=== PATIENT | female | born 2000 | race Caucasian/White ===

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

== ENCOUNTER 2020-10-08 13:26 | Outpatient (NON) | payer OTHER, SELFPAY | END 2020-10-08 13:27 | disposition home or self-care (01) | LOC: CHSLAB 13:27 | PROVIDERS: Visit Provider Nurse Practitioner Family | DX: N39.0 Urinary tract infection, site not specified (principal) | CPT/HCPCS: 87077; 87086; 87088; 87186 ==

== ENCOUNTER 2023-05-22 11:58 | Outpatient (CLI) | payer OTHER, SELFPAY ==
--- NOTE | ~2023-05-22 | XR_ITS ---
XR abdomen/kub 1V 05/22/2023 12:47 INDICATION: Nausea, vomiting and diarrhea. Right lower abdomen pain. TECHNIQUE: KUB COMPARISON: None FINDINGS: Bowel gas pattern is normal. There is no evidence of free air, mass, organomegaly, ascites or obstruction. No abnormal calculi are seen. The bones appear intact. IMPRESSION: 1: No acute abdominal abnormality identified. Reviewed, dictated and finalized at location A. BENDER
--- NOTE | 2023-05-22 12:12 | ECG_ITS ---
Measurements Intervals [place] Rate: 82 P: -2 NH: 100 QRS: 69 QRSD: 92 T: 56 QT: 360 QTc: 423 Interpretive Statements SINUS RHYTHM WITH SHORT NH INTERVAL NO PREVIOUS ECG AVAILABLE FOR COMPARISON Electronically Signed On 05-22-2023 16:26:11 SALT MACHINE OPERATOR by Sara Yip M.D.
[2023-05-22 12:23] LABS: Basophils Absolute Auto 0.09 K/mm3 (0.00-0.10); Basophils Percent Auto 0.9 % (0.0-1.0); Eosinophils Absolute Auto 0.08 K/mm3 (0.02-0.50); Eosinophils Percent Auto 0.8 % (1.0-6.0); Hematocrit 49.1 % (35.0-49.0); Hemoglobin 16.4 g/dL (12.0-15.0); Immature Granulocyte Absolute 0.03 K/mm3 (0.00-0.00); Immature Granulocyte Percent A 0.3 % (0.0-0.0); Lymphocytes Absolute Auto 1.09 K/mm3 (1.10-4.50); Lymphocytes Percent Auto 11.1 % (18.0-42.0); Mean Corpuscular HGB Conc 33.4 g/dL (32.0-36.0); Mean Corpuscular Hemoglobin 30.5 pg (27.0-31.0); Mean Corpuscular Volume 91.4 fL (78.0-102.0); Mean Platelet Volume 11.2 fl (9.2-11.8); Monocytes Absolute Auto 0.22 K/mm3 (0.10-0.90); Monocytes Percent Auto 2.2 % (2.0-11.0); Neutrophils Absolute Auto 8.3 K/mm3 (1.7-7.2); Neutrophils Percent Auto 84.7 % (50.0-70.0); Platelet Count Result 301 K/mm3 (150-420); Red Blood Count 5.37 M/mm3 (4.20-5.40); Red Cell Distribution Width 12.1 % (11.6-14.4); White Blood Count 9.8 K/mm3 (4.8-10.8)
[2023-05-22 12:25] LABS: Pregnancy On Board Control Positive; Urine Pregnancy Test Negative
[2023-05-22 12:32] LABS: Amphetamine Screen Urine Negative (Negative); Barbiturate Screen Urine Negative (Negative); Benzodiazepines Screen Urine Negative (Negative); Cannabinoid Screen Urine Positive (Negative); Cocaine Screen Urine Negative (Negative); Methadone Screen Urine Negative (Negative); Opiate Screen Urine Negative (Negative); Phencyclidine Screen Urine Negative (Negative)
[2023-05-22 13:14] LABS: Alanine Aminotransferase 24 U/L (14-59); Anion Gap 10 mmol/L (8-16); Aspartate Amino Transferase 14 U/L (15-37); Blood Urea Nitrogen 10 mg/dL (7-18); Calcium 9.5 mg/dL (8.5-10.1); Carbon Dioxide 28 mmol/L (21-32); Chloride 99 mmol/L (98-108); Estimated Glomerular Filt Rate > 60; Glucose 103 mg/dL (70-99); Osmolality Calculated 283 mOsm/kg (285-295); Potassium 4.1 mmol/L (3.5-5.1); Sodium 137 mmol/L (136-145)
[2023-05-22 13:24] LABS: HIV 1 P24 AG Negative (Negative); HIV 1/2 AB Negative (Negative)
[2023-05-22 13:35] LABS: Alkaline Phosphatase 53 U/L (46-116); Bilirubin,Total 0.5 mg/dL (0.00-1.00); Total Protein 8.4 g/dL (6.4-8.2)
[2023-05-22 13:41] LABS: Thyroid Stimulating Hormone Reflex 0.37 u/IU/mL (0.36-3.74)
[2023-05-22 13:49] LABS: Appearance Urine Cloudy (Clear); Bilirubin Urine 1+ (Negative); Blood Urine Negative (Negative); Color Urine Yellow (Yellow); Glucose Urine UA Negative (Negative); Ketones Urine 3+ (Negative); Leukocyte Esterase Ur Negative LEU/UL (Negative); Nitrate Urine Negative (Negative); Protein Urine Trace (Negative); Specific Grav Ur 1.025 (1.010-1.020); Urobilinogen Urine 0.2 mg/dL (0.2-1.0)
[2023-05-22 14:01] LABS: Add Urine Microscopic? YES; RBC Urine None seen /hpf (0-2); Squamous Epithelial Cell Urine Rare /hpf (Few); WBC Urine None seen /hpf (0-3)
[2023-05-22 14:02] LABS: Amorphous Sediment Urine Heavy; Bacteria Urine 1+ /hpf
[2023-05-25 12:14] LABS: RPR Screen Non-Reactive (Non-Reactive)
[2023-05-26 14:59] LABS: Hepatitis C Virus Antibody Nonreactive
== END 2023-05-22 11:59 | disposition home or self-care (01) ==
PROVIDERS: PCP Nurse Practitioner Family; Visit Provider Nurse Practitioner Family
DX: R19.7 Diarrhea, unspecified (principal); R11.2 Nausea with vomiting, unspecified; R30.0 Dysuria; Z11.3 Encounter for screening for infections with a predominantly sexual mode of transmission; R00.0 Tachycardia, unspecified
CPT/HCPCS: 36415; 74018; 80053; 80307; 81001; 81025; 84443; 85025; 86592; 86695; 86696; 86803; 87806; 93005

== ENCOUNTER 2023-05-26 12:01 | Outpatient (NON) | payer OTHER, SELFPAY ==
[2023-05-26 13:05] LABS: Free T3 3.24 pg/mL (2.18-3.98); Free T4 Free Thyroxine 1.23 ng/dL (0.76-1.46)
[2023-05-27 10:38] LABS: Chlamydia trachomatis NOT DETECTED (NOT DETECTE); Neisseria gonorrhoeae PCR NOT DETECTED (NOT DETECTE)
== END 2023-05-26 12:02 | disposition home or self-care (01) ==
LOC: CHSLAB 12:02
PROVIDERS: Visit Provider Nurse Practitioner Family
DX: R30.9 Painful micturition, unspecified (principal); Z11.3 Encounter for screening for infections with a predominantly sexual mode of transmission
CPT/HCPCS: 36415; 84439; 84481; 87086; 87491; 87591

== ENCOUNTER 2023-06-02 08:34 | Outpatient (CLI) | payer OTHER, SELFPAY ==
--- NOTE | 2023-06-04 12:59 | WPDHOLTEREM ---
Holter/Event Monitor Holter/Event Monitor Date of procedure: 06/02/23 Holter/Event Procedure: 48 Hr Holter Monitor Indications: Tachycardia Conclusion: 1. 48 hour holter monitor on 06/02/23. 2. Underlying rhythm is sinus rhythm. HR range 52-185 bpm; average HR 88 bpm. HR at 185 bpm was at 15:42. 3. There are 8 premature supraventricular complexes. No supraventricular tachycardia. 4. There are 80 premature ventricular complexes. No ventricular tachycardia. 5. No sinoatrial or atrioventricular blocks. No significant pauses greater than 2 seconds. 6. Patient reports symptoms of chest tightness, racing heart beat which demonstrate sinus rhythm, HR range 94-156 bpm.
== END 2023-06-02 08:35 | disposition home or self-care (01) ==
LOC: CHSCARD 08:35
PROVIDERS: PCP Nurse Practitioner Family; Visit Provider Nurse Practitioner Family
DX: R07.89 Other chest pain (principal); R00.0 Tachycardia, unspecified
CPT/HCPCS: 93225; 93226

== ENCOUNTER 2023-07-29 08:59 | Outpatient (CLI) | payer OTHER, SELFPAY ==
[2023-07-29 09:48] LABS: Hematocrit 46.3 % (35.0-49.0); Hemoglobin 15.8 g/dL (12.0-15.0); Mean Corpuscular HGB Conc 34.1 g/dL (32.0-36.0); Mean Corpuscular Hemoglobin 30.3 pg (27.0-31.0); Mean Corpuscular Volume 88.9 fL (78.0-102.0); Platelet Count Result 240 K/mm3 (150-420); Red Blood Count 5.21 M/mm3 (4.20-5.40); Red Cell Distribution Width 12.1 % (11.6-14.4); White Blood Count 4.9 K/mm3 (4.8-10.8)
[2023-07-29 10:04] LABS: Band Neutrophils Percent 0 % (0-6); Eosinophils Absolute Manual 0.44 K/mm3 (0.02-0.5); Eosinophils Percent Manual 9 % (1-6); Lymphocytes Absolute Manual 1.17 K/mm3 (1.1-4.5); Lymphocytes Percent Manual 24 % (18-44); Monocytes Absolute Manual 0.44 K/mm3 (0.1-0.90); Monocytes Percent Manual 9 % (3-9); Neutrophils Absolute Manual 2.84 K/mm3 (1.7-7.2); Neutrophils Percent Manual 58 % (46-73); Platelet Estimate Adequate (Adequate); Total Cells Counted 100
[2023-07-29 10:52] LABS: Alanine Aminotransferase 37 U/L (14-59); Albumin Level 4.5 g/dL (3.4-5.0); Alkaline Phosphatase 60 U/L (46-116); Anion Gap 10 mmol/L (8-16); Aspartate Amino Transferase 21 U/L (15-37); Bilirubin,Total 0.4 mg/dL (0.00-1.00); Blood Urea Nitrogen 8 mg/dL (7-18); Carbon Dioxide 28 mmol/L (21-32); Chloride 98 mmol/L (98-108); Estimated Glomerular Filt Rate > 60; Free T3 3.66 pg/mL (2.18-3.98); Free T4 Free Thyroxine 1.35 ng/dL (0.76-1.46); Glucose 94 mg/dL (70-99); Osmolality Calculated 280 mOsm/kg (285-295); Potassium 3.6 mmol/L (3.5-5.1); Sodium 136 mmol/L (136-145); Total Protein 8.1 g/dL (6.4-8.2)
[2023-07-29 10:53] LABS: Thyroid Stimulating Hormone Reflex 0.47 u/IU/mL (0.36-3.74)
--- NOTE | 2023-08-06 13:35 | P.PCNPFT_ITS ---
PFT Procedure Performed PFT Procedure Performed Spirometry with Pre/Post Bronchodilator Plethysmography (Lung Vol) Diffusing Cap (DLCO) Flow Vol Loop PFT Interpretation DOS: 07/29/2023 REQUESTING: Emily Bermeo APRN REASON FOR TESTING: eosinophilic asthma PULMONARY FUNCTION TESTS Results are reliable and reproducible. Spirometry: Pre-bronchodilator FEV1 is 3.31 L, 101%, normal. Pre- bronchodilator FVC is 4.15 L, 106%, normal. FEV1/FVC ratio 80%, normal. After bronchodilator administration, there is an 8% drop in the FEV1 and a 3% drop in the FVC, not statistically significant changes. The FEV1/FVC ratio is 75%. Lung volumes: total lung capacity is 5.32 L, 95% predicted, normal. Residual volume is 1.16 L, 70% predicted, normal. RV/TLC is 22%, not elevated. FRC is 2.98 L, 91%, normal. Airway resistance is 3.24 cmH2O/L/sec, 280% predicted. Diffusion: DLCO is 22.2, 98%, normal. DLCO/VA is 4.67, 99%, normal. Flow volume loop: Unremarkable. IMPRESSION: Normal spirometry, nonspecific drop in flows after bronchodilator administration, normal lung volumes and diffusion capacity. No prior studies for comparison. Abby Verde MD
== END 2023-07-29 09:00 | disposition home or self-care (01) ==
PROVIDERS: PCP Nurse Practitioner Family; Visit Provider Nurse Practitioner Family
DX: R00.0 Tachycardia, unspecified (principal); J82.89 Other pulmonary eosinophilia, not elsewhere classified
CPT/HCPCS: 36415; 80053; 84439; 84443; 84481; 85025; 94060; 94726; 94729